=== PATIENT | male | born 1985 | race Caucasian/White ===

== ENCOUNTER 2022-10-08 14:00 | Emergency (ER) | payer SELFPAY ==
[~2022-10-08] VITALS: Ht 170.2 cm; Wt 68.0 kg
[2022-10-08] MEDS ORDERED: ONDANSETRON ODT 4 MG TAB.RAPDIS SL ONE (14:15)
[2022-10-08 14:49] LABS: HEMATOCRIT 44.2 % (36.7-47.1); MEAN CORPUSCULAR VOLUME 85.9 fL (73.0-96.2); PLATELET COUNT (AUTO) 296 K/uL (152-348)
[2022-10-08 14:58] LABS: CARBON DIOXIDE 27 mmol/L (21-32); CHLORIDE 102 mmol/L (98-107); CREATININE 0.9 mg/dL (0.6-1.3); GLUCOSE 148 mg/dL (74-106); POTASSIUM 3.1 mmol/L (3.5-5.1); UREA NITROGEN, BLOOD 15 mg/dL (7-18)
[2022-10-08 15:08] LABS: ALANINE AMINOTRANSFERASE 25 U/L (16-63); ALKALINE PHOSPHATASE 77 U/L (50-136); ASPARTATE AMINOTRANSFERASE 17 U/L (15-37); BILIRUBIN,DIRECT 0.2 mg/dL (0.0-0.2); BILIRUBIN,TOTAL 0.4 mg/dL (0.2-1.0); TOTAL PROTEIN, SERUM 7.5 g/dL (6.4-8.2)
[2022-10-08 15:12] LABS: ACETAMINOPHEN < 2.0 ug/mL (10-30)
[2022-10-08 15:25] LABS: ETHANOL < 3 MG/DL (0-0)
[2022-10-08] MEDS ORDERED: NALO4SPR BNOSTRILS ×2 (17:15→17:19)
--- NOTE | 2022-10-08 18:46 | NUR ---
Patient present to ER via EMS for reported over dose. Patient lathargic on admission and unable to provide full name. Patient lying supine in bed. Bed in lowest position. Safety measurses in place.
--- NOTE | 2022-10-08 21:00 | NUR ---
Patient A/Ox3, ambulatory with steady gait. Dr Garvin into eval patient.
--- NOTE | 2022-10-08 22:50 | NUR ---
Patient given written and verbal discharge instructions. Patient verbalizes understanding of instructions. Patient is ambulatory with steady gait. Refuses offer of [facility] placement. Patient given list of available shelters in surrounding area.
[2022-10-08 23:02] VITALS: BP 128/72
== END 2022-10-08 23:04 | disposition home or self-care (01) ==
LOC: ER 14:06
DX: T40.601A Poisoning by unspecified narcotics, accidental (unintentional), initial encounter (principal); R53.83 Other fatigue; F19.10 Other psychoactive substance abuse, uncomplicated; Y92.480 Sidewalk as the place of occurrence of the external cause; E87.6 Hypokalemia
CPT/HCPCS: 36415; 70450; 85025; A4663; G0480